=== PATIENT | female | born 1940 | race Caucasian/White ===

== ENCOUNTER → 2017-05-09 | Outpatient (CLI) | payer MEDICARE ==
[~2017-05-09] MED LIST: ASPI81TA81 PO; ATEN50TA PO; CHOL10008 PO; CIPR500T2 PO; FLEC1TAB9 PO; LEVO50TA4 PO; MULT-365 PO; VALS1TAB70 PO
[2017-05-09 14:24] LABS: AUTOMATED NEUTROPHIL # 5.7 TH/MM3 (1.8-7.7); BASOPHIL % 0.4 % (0.0-2.0); EOSINOPHIL # 0.1 TH/MM3 (0-0.4); EOSINOPHIL % 1.3 % (0.0-4.0); HEMATOCRIT 44.9 % (35.0-46.0); LYMPH % 30.6 % (9.0-44.0); MEAN CELL VOLUME 85.3 FL (80.0-100.0); MEAN CORPUSCULAR HEMOGLOBIN 28.6 PG (27.0-34.0); MEAN CORPUSCULAR HGB CONC 33.5 % (32.0-36.0); MEAN PLATELET VOLUME 7.7 FL (7.0-11.0); MONO % 8.4 % (0.0-8.0); MONOCYTE # 0.8 TH/MM3 (0-0.9); NEUT % 59.3 % (16.0-70.0); PLATELET COUNT 332 TH/MM3 (150-450); RED BLOOD COUNT 5.26 MIL/MM3 (4.00-5.30); RED CELL DISTRIBUTION WIDTH 13.5 % (11.6-17.2); WHITE BLOOD COUNT 9.7 TH/MM3 (4.0-11.0)
--- NOTE | 2017-05-09 14:35 | RADRPT ---
EXAM DATE/TIME: 05/09/2017 13:49 [facility] COMPARISON: No previous studies available for comparison. INDICATIONS : Evaluate for pneumonia, pneumothorax and communicable diseases. Pre-op lower back surgery MEDICAL HISTORY : Hypertension. A-Fib SURGICAL HISTORY : None. ENCOUNTER: Initial ACUITY: 1 day PAIN SCORE: 0/10 LOCATION: chest FINDINGS: PA and lateral views of the chest demonstrate the lungs to be symmetrically aerated without evidence of mass, infiltrate or effusion. The cardiomediastinal contours are unremarkable. Osseous structure s are intact. CONCLUSION: Normal examination for a patient of this age. Sumit Schrader MD on May 09, 2017 at 14:32 Board Certified Radiologist. This report was verified electronically.
[2017-05-09 14:36] LABS: BACTERIA, URINE MANY /hpf; BILIRUBIN, URINE NEG (NEG); BLOOD, URINE NEG (NEG); GLUCOSE,URINE NEG (NEG); KETONE, URINE NEG (NEG); MUCUS URINE FEW /lpf (OCC); NITRITE,URINE NEG (NEG); SQUAMOUS EPITHELIAL CELL URINE 2 /hpf (0-5); TRANSITIONAL EPI CELLS, URINE 1 /hpf; URINE COLOR YELLOW (YELLW/STRAW); URINE LEUKOCYTE ESTERASE LARGE (NEG); WHITE BLOOD CELL CLUMPS OCC
[2017-05-09 14:36] LABS: ALBUMIN 4.2 GM/DL (3.4-5.0); AST (GOT) 19 U/L (15-37); BICARBONATE 29.4 MEQ/L (21.0-32.0); BLOOD UREA NITROGEN 18 MG/DL (7-18); CALCIUM 9.9 MG/DL (8.5-10.1); CHLORIDE 104 MEQ/L (98-107); GLOMERULAR FILTRATION RATE 69 ML/MIN (>89); GLUCOSE,FASTING 87 MG/DL (74-99); SODIUM (NA) 141 MEQ/L (136-145)
[2017-05-09 14:39] LABS: ALKALINE PHOSPHATASE 87 U/L (45-117); ALT (GPT) 26 U/L (10-53); TOTAL BILIRUBIN ADULT 0.9 MG/DL (0.2-1.0); TOTAL PROTEIN 7.6 GM/DL (6.4-8.2)
[2017-05-09 14:41] LABS: PROTHROMBIN TIME - PATIENT 10.3 SEC (9.8-11.6)
== END ==
LOC: CPRE 12:29
PROVIDERS: ATTEND Neurological Surgery
DX: Z01.812 Encounter for preprocedural laboratory examination (principal); Z01.811 Encounter for preprocedural respiratory examination; M51.36 Other intervertebral disc degeneration, lumbar region; M48.062 Spinal stenosis, lumbar region with neurogenic claudication; M43.16 Spondylolisthesis, lumbar region; N39.0 Urinary tract infection, site not specified; B96.1 Klebsiella pneumoniae [K. pneumoniae] as the cause of diseases classified elsewhere; Z79.01 Long term (current) use of anticoagulants; I10 Essential (primary) hypertension; M85.9 Disorder of bone density and structure, unspecified; R73.9 Hyperglycemia, unspecified; E03.9 Hypothyroidism, unspecified
CPT/HCPCS: 36415; 71020; 80053; 81001; 85025; 85610; 85730; 87077; 87086; 87186

== ENCOUNTER → 2017-05-09 | Outpatient (CLI) | payer MEDICARE ==
[2017-05-09 14:40] LABS: CHOLESTEROL/ HDL RATIO 2.57 RATIO
== END ==
LOC: CLAB 12:36
PROVIDERS: ATTEND Family Medicine
DX: I10 Essential (primary) hypertension (principal); M85.9 Disorder of bone density and structure, unspecified; R73.9 Hyperglycemia, unspecified; E03.9 Hypothyroidism, unspecified
CPT/HCPCS: 80061; 82306

== ENCOUNTER 2017-05-20 08:30 | Inpatient (IN) | payer MEDICARE ==
[~2017-05-20] VITALS: Ht 172.7 cm; Wt 102.1 kg
--- NOTE | 2017-05-24 14:51 | MH ---
cc: JERICA ASENCIO M.D., ROHIT K. M.D. SICKINGER, BARTON G. DO DATE OF ADMISSION 05/27/2017 ADMITTING DIAGNOSIS 1. Lumbar degenerative disc disease. 2. Lumbar spinal stenosis. HISTORY OF PRESENT ILLNESS This is a 77-year-old female who presented to us for an evaluation of low back pain with difficulty walking secondary to numbness and paresthesias in the lower extremities. She states she has had pain in her low back for the last 30 years progressively getting worse but the numbness in the legs for the last year and a half or two. She states the numbness is all over her legs in no particular distribution. She states the numbness in her lower extremities and the low back pain resolve with sitting or lying down. She states that she has limited her ability to walk and has been using a walker for the last couple of months. She has been to pain management and had numerous injections which she states have been short-lived. She denies any bowel or bladder incontinence. She has been to physical therapy for numerous years and has seen Dr. Wade for 12-13 years. She states that she is only able to walk about 15-20 feet before she has to sit down. PAST MEDICAL HISTORY 1. Hypertension. 2. History of atrial fibrillation. 3. Gastroesophageal reflux disease. 4. Left hip replacement 2013. 5. Cataract surgery in May and June 2008. MEDICATIONS Current medications: 1. Flecainide 150 mg b.i.d. 2. Atenolol 50 mg daily. 3. Thyroxin 0.025 mg daily. 4. Valsartan 320 mg daily. 5. Multivitamin daily. 6. Aspirin 81 mg daily. ALLERGIES SHE STATES ENALAPRIL CAUSED A COUGH. FAMILY HISTORY Her father is at [id number] and had diabetes. Her mother is at [id number]-[id number] and had breast cancer and heart disease. She has a brother who is alive at 81-[id number] in good health. Another brother is alive at 75-year-old in good health. A sister is alive at 40-[id number]-iop in good health and a sister who is alive at 30-kyvgl-uar and has breast cancer. SOCIAL HISTORY She is retired. She is . She has three children. She lives alone. She does not smoke. She quit smoking in 1974. REVIEW OF SYSTEMS CONSTITUTIONAL: She denies any fever or chills. EARS, NOSE, AND THROAT: No pharyngitis, exudates or bloody drainage from her nose. CARDIOVASCULAR: Denies any chest pain or palpitations. RESPIRATORY: No cough or shortness of breath. GENITOURINARY: No dysuria or hematuria. MUSCULOSKELETAL: Positive for low back pain. SKIN: No rashes or pruritus. NEUROLOGIC: No difficulty with speech or memory. GASTROINTESTINAL: No nausea, vomiting, abdominal pain. PSYCHIATRIC: No anxiety or depression symptoms. ENDOCRINE: No polyuria or polydipsia. HEMATOLOGIC: Positive for bruising tendencies but no bleeding tendencies. PHYSICAL EXAMINATION HEAD: Normocephalic, atraumatic. NECK: Supple. No carotid bruits heard on auscultation. LUNGS: Clear to auscultation bilaterally. HEART: Regular rate and rhythm. Normal S1, S2. ABDOMEN: Soft, nontender. Positive bowel sounds. SKIN: No cyanosis or erythema. MUSCULOSKELETAL: She has 5/5 strength in the lower extremities. She ambulates with a rolling walker with a seat and brakes. NEUROLOGIC: She is awake, alert, oriented. Cranial nerves II-XII are grossly intact. Her speech is fluent. Comprehension is good. Sensation is intact in the lower extremities. Patellar reflexes are 2+. Achilles reflexes are diminished bilaterally. DATA REVIEW Reviewed an MRI of the lumbar spine from March 13, 2017 which revealed severe L4-L5 spinal stenosis from a combination of facet ligamentum flavum hypertrophy. There is also advanced L4-L5 disc degeneration with disc height collapse along with a grade I spondylolisthesis. There is L5-S1 disc degeneration also noted. IMPRESSION A 77-year-old female with a chronic history of low back pain which is severe and neurogenic claudication symptoms which have progressively gotten worse in the last 1-2 years. Even with the use of a walker she cannot walk more than 20-30 feet. She has undergone multiple bouts of physical therapy as well as interventional pain management without any lasting relief. She has severe L4-L5 spinal stenosis with facet arthropathy along with degenerative disc disease and a grade I spondylolisthesis. PLAN We have discussed treatment options with the patient which include continued conservative treatment measures including physical therapy and pain management versus surgical intervention. We have discussed L4-L5 interbody fusion with pedicle screw fixation with the patient in great detail. The procedure was explained using spine models in the office and all of her questions were answered to her satisfaction. We have discussed the procedure as well as the risk, benefit, alternative and recovery time in great detail with the patient. We have discussed the risks involved with surgery include but are not limited to bleeding, infection, muscle weakness, voice hoarseness, difficulty swallowing, heart attack, stroke, blood clots, non-fusion, scar tissue formation, among others. The patient understands the procedure and she wants to proceed. We have obtained cardiac clearance and medical clearance and she was therefore scheduled accordingly. Dictated by: Erick Cruz PA-C MD LATASHA Zhang/KLARISSA /2:00 PM /2:22 PM
[2017-05-27 02:00] VITALS: BP 120/57; PULSE 69; RESP 16; TEMP 97.7; O2SAT 98
[2017-05-27] MEDS ORDERED: POVIDONE IODINE 5% (ANTISEPSIS KIT) 4 APPLICATIONS EACH NARE PRN (06:45)
[2017-05-27] MEDS ORDERED: LACTATED RINGER'S 1000 ML IV PRN (06:45)
[2017-05-27] MEDS ORDERED: SODIUM CHLORID 0.9% 500 ML IV PRN (06:45)
[2017-05-27] MEDS ORDERED: SODIUM CHLOR 0.9% 1000 ML INJ 1,000 ML IV SCH (06:45)
[2017-05-27] MEDS ORDERED: CHLORHEXIDINE GLUCONATE 2 % 1 PACK (2 CLOTHS) TOPICAL PRN (06:45)
[2017-05-27] MEDS ORDERED: METOPROLOL TARTRATE 25 MG TAB PO PRN (06:45)
[2017-05-27] MEDS ORDERED: VANCOMYCIN HCL 1000 MG VIAL ONE ×2 (07:19→07:20)
[2017-05-27] MEDS ORDERED: BUPIVACAINE/EPINEPHRINE 0.5% 50 ML VIAL ONE (07:19)
[2017-05-27] MEDS ORDERED: THROMBIN (TOPICAL) 5,000 UNIT VIAL ONE (07:19)
[2017-05-27] MEDS ORDERED: GELFOAM SIZE 100 ONE (07:20)
[2017-05-27] MEDS ORDERED: ACETAMINOPHEN 1000 MG/100 ML 100 ML IV ONE (07:34)
[2017-05-27] MEDS ORDERED: ARTIFICIAL TEARS OPTH OINT 3.5 APPLIC/3.5 GM TUBO ONE (08:12)
[2017-05-27] MEDS: VANCOMYCIN 1000 MG/NS 250 ML ON-CALL IV SCH ×4 (08:48→10:38)
[2017-05-27] MEDS ORDERED: ROCURONIUM INJ 50 MG/5 ML SYRINGE IV PUSH ONE (12:00)
[2017-05-27] MEDS ORDERED: NEOSTIGMINE 5 MG/5 ML SYRINGE IV PUSH ONE (12:00)
[2017-05-27] MEDS ORDERED: LACTATED RINGER'S 1000 ML INJ 1,000 ML IV ONE (12:00)
[2017-05-27] MEDS ORDERED: PROPOFOL 200 MG/20 ML AMP IV ONE (12:00)
[2017-05-27] MEDS ORDERED: GLYCOPYRROLATE 1 MG/5 ML SYRINGE IV PUSH ONE (12:00)
[2017-05-27] MEDS ORDERED: ePHEDrine/NS 25 MG/5 ML SYRINGE IV ONE (12:00)
[2017-05-27] MEDS ORDERED: PHENYLEPH/NS 1000 MCG/10 ML SYR IV ONE (12:00)
[2017-05-27] MEDS ORDERED: LIDOCAINE HCL 1% PF 5 ML SYRINGE OTHER ONE (12:00)
[2017-05-27] MEDS ORDERED: PHENYLEPHRINE HCL 10 MG/ML VIAL IV ONE (12:00)
[2017-05-27] MEDS ORDERED: DEXAMETHASONE SOD PHOS 4 MG/ML VIAL IV ONE (12:00)
[2017-05-27] MEDS ORDERED: ONDANSETRON HCL 4 MG/2 ML VIAL IV ONE (12:00)
[2017-05-27] MEDS ORDERED: NS + KCL 20 MEQ INJ 1,000 ML IV SCH (12:12)
[2017-05-27] MEDS ORDERED: DO NOT ADM ANY ANTICOAGULANT DRUGS PRN (12:14)
[2017-05-27] MEDS ORDERED: POTASSIUM CHLOR 20 MEQ PREMIX 100 ML IV PRN (12:15)
[2017-05-27] MEDS ORDERED: cloNIDine HCL 0.1 MG TAB PO PRN (12:15)
[2017-05-27] MEDS ORDERED: ONDANSETRON HCL 4 MG/2 ML VIAL IV PUSH PRN (12:15)
[2017-05-27] MEDS ORDERED: BISACODYL 10 MG SUPP RECTAL PRN (12:15)
[2017-05-27] MEDS ORDERED: CYCLOBENZAPRINE HCL 10 MG TAB PO PRN (12:15)
[2017-05-27] MEDS ORDERED: RESP: ALBUTEROL 2.5 MG/3 ML NEB (PRN) NEB (12:15)
[2017-05-27] MEDS ORDERED: ACETAMINOPHEN 325 MG TAB PO PRN (12:15)
[2017-05-27] MEDS ORDERED: PROMETHAZINE INJ 25 MG/ML VIAL IM PRN (12:15)
[2017-05-27] MEDS ORDERED: MAGNESIUM SULFATE INJ 2 GM in SODIUM CHLORIDE 0.9% INJ 100 ML IV PRN (12:15)
[2017-05-27] MEDS ORDERED: SENNOSIDES 8.6 MG TAB PO PRN (12:15)
[2017-05-27] MEDS ORDERED: ACETAMINOPHEN/HYDROcodone 325 MG/10 MG TAB PO PRN (12:15)
[2017-05-27] MEDS ORDERED: MORPHINE SULFATE 4 MG/ML INJ IV PUSH PRN (12:15)
[2017-05-27] MEDS ORDERED: MAGNESIUM HYDROXIDE SUSP 30 ML CUP PO PRN (12:15)
[2017-05-27] MEDS ORDERED: MENTHOL LOZENGE BUCCAL PRN (12:15)
[2017-05-27] MEDS ORDERED: LACTULOSE SYRUP 20 GM/30 ML CUP PO PRN (12:15)
[2017-05-27] MEDS ORDERED: ALUMINUM/MAGNESIUM/SIMETH 30 ML CUP PO PRN (12:15)
[2017-05-27] MEDS ORDERED: CALCIUM GLUCONATE INJ 1 GM in SODIUM CHLORIDE 0.9% INJ 100 ML IV PRN (12:15)
[2017-05-27] MEDS ORDERED: SODIUM CHLORIDE 0.9% FLUSH 10 ML FLUSH IV FLUSH PRN (12:15)
--- NOTE | 2017-05-27 12:18 | PD.OP ---
MD Tima Marti MD Operative Report Date of Surgery: May 27, 2017 Preoperative Diagnosis: Lumbar L4-5 spinal stenosis with associated degenerative disc disease, facet hypertrophy, and grade 1 spondylolisthesis; low back pain with neurogenic claudication Postoperative Diagnosis: Same Anesthesia: Gen. endotracheal by Naldo wallis Surgeon: Kenneth Valentine M.D. Attendance Clerk(s): Hannah Navas Operation and Findings: Following initiation of general endotracheal anesthesia, the patient had a Rose catheter placed along with sequential compression devices. A gram of vancomycin was administered intravenously and she was turned in a prone position on a Brent frame, on a Zain table, and all pressure points adequately padded. The lumbosacral region was then prepped with Chloraprep and sterilely draped with Ioban along the usual sterile draping. A left paraspinal skin incision was then made extending from the L4-L5 level after infiltrating the skin with 0.5% Marcaine with epinephrine solution extending down through the fascia. The muscle fibers were split using avascular fatty plane and detached from the underlying facets, transverse process and lateral portion of lamina on the right side and a self-retaining retractor used for exposure. Intraoperative fluoroscopy was also used for level of confirmation along with microscope magnification for further dissection. There was significant facet and ligamentum flavum hypertrophy noted at the L4-5 levels. Left L4-5 facet was resected with a drill bit along with the lamina and there was severe foraminal and lateral recess stenosis from hypertrophied ligamentum flavum and facet which were decompressed bilaterally through the unilateral approach. There was disc height collapse along with disc protrusion also leading to the foraminal stenosis. Epidural hemostasis was achieved with bipolar cautery and Gelfoam with thrombin. Subsequently entered into the disc space at the L4-5 level with a #15 blade and michelle were used for discectomy. I then placed PEEK cage packed with local autograft bone and more local autograft bone was packed adjacent to the cage in interspace for added interbody fusion. With placement of the cage, I was able to distract the interspace and opened up the foramen further bilaterally. Subsequently in order to facilitate the fusion and provide stabilization, pedicle screw fixation was undertaken using Luling spine screws on entry point at the left L4-5 levels at the junction of the transverse process and facet. Subsequently using AP and lateral fluoroscopy tap and screw placement. The screws were then connected with a julianne and locked in place with caps. The construct appeared very secure at this point. The area was then copiously irrigated with Vancomycin solution and powder. The retractors were removed and the bipolar cautery used for hemostasis. The muscle fascia was then approximated using 2-0 Vicryl interrupted stitches and then 3-0 Vicryl subcuticular stitches also placed in interrupted fashion. The final skin closure was completed with Mastisol and Steri-Strips. A sterile dressing was then applied. The patient then turned in supine position, extubated and taken to recovery room. There were no intraoperative complications. All sponge and needle counts were correct at the end of procedure. Estimated blood loss about 100 ml. Kenneth Valentine MD May 27, 2017 12:18
--- NOTE | 2017-05-27 12:32 | RADRPT ---
EXAM DATE/TIME: 05/27/2017 08:56 [facility] COMPARISON: No previous studies available for comparison. INDICATIONS : L4-L5 posterior lumbar fusion. Level localization. MEDICAL HISTORY : None. SURGICAL HISTORY : None. ENCOUNTER: Initial ACUITY: 1 day PAIN SCORE: Non-responsive. LOCATION: Lumbar spine. FINDINGS: A single cross table lateral view of the lower lumbar spine was obtained intraoperatively using a mat aamir camera. This demonstrates posterior spinal retractors in place with metallic marker posterior to the L4 vertebral body. There is a mild grade 1 anterospondylolisthesis of L4 and L5 of several millim eters. The study is labeled assuming 5 nonrib-bearing lumbar type vertebra. CONCLUSION: Limited localization exam as described. Yoel Sharpe MD on May 27, 2017 at 12:30 Board Certified Radiologist. This report was verified electronically.
--- NOTE | 2017-05-27 12:32 | RADRPT ---
EXAM DATE/TIME: 05/27/2017 08:56 [facility] COMPARISON: No previous studies available for comparison. INDICATIONS : Post-op L4-L5 posterior lumbar fusion. MEDICAL HISTORY : None. SURGICAL HISTORY : None. ENCOUNTER: Initial ACUITY: 1 day PAIN SCORE: Non-responsive. LOCATION: Lumbar spine. FINDINGS: AP and lateral cone-down views of the lower lumbar spine were obtained and demonstrate that the patie nt is status post fusion at the L4-5 level with left-sided pedicle screws and posterior fixation julianne. There is bone grafting material and markers in the L4-5 interspace. Is a mild grade 1 anterior spond ylolisthesis of L4 on L5. The study is labeled assuming 5 nonrib-bearing lumbar type vertebra. CONCLUSION: 1. Status post fusion at L4-5. 2. Mild grade 1 anterior spondylolisthesis of L4 and L5. Yoel Sharpe MD on May 27, 2017 at 12:29 Board Certified Radiologist. This report was verified electronically.
[2017-05-27 13:08] LABS: AUTOMATED NEUTROPHIL # 5.7 TH/MM3 (1.8-7.7); BASOPHIL % 0.5 % (0.0-2.0); EOSINOPHIL % 0.2 % (0.0-4.0); HEMATOCRIT 39.3 % (35.0-46.0); HEMOGLOBIN 13.6 GM/DL (11.6-15.3); LYMPH % 19.6 % (9.0-44.0); LYMPHOCYTE # 1.5 TH/MM3 (1.0-4.8); MEAN CELL VOLUME 85.2 FL (80.0-100.0); MEAN CORPUSCULAR HEMOGLOBIN 29.4 PG (27.0-34.0); MEAN CORPUSCULAR HGB CONC 34.5 % (32.0-36.0); MEAN PLATELET VOLUME 7.4 FL (7.0-11.0); MONO % 2.8 % (0.0-8.0); MONOCYTE # 0.2 TH/MM3 (0-0.9); NEUT % 76.9 % (16.0-70.0); PLATELET COUNT 275 TH/MM3 (150-450); RED BLOOD COUNT 4.61 MIL/MM3 (4.00-5.30); RED CELL DISTRIBUTION WIDTH 13.8 % (11.6-17.2); WHITE BLOOD COUNT 7.5 TH/MM3 (4.0-11.0)
[2017-05-27 13:31] LABS: BICARBONATE 24.8 MEQ/L (21.0-32.0); CALCIUM 8.7 MG/DL (8.5-10.1); CREATININE 0.9 MG/DL (0.50-1.00); MAGNESIUM 1.9 MG/DL (1.5-2.5)
--- NOTE | 2017-05-27 13:55 | PD.CONS ---
HPI Service [facility] Consult Requested By Neurosurgery Reason for Consult Medical management Primary Care Physician Tima Mora M.D. Diagnoses: History of Present Illness 77 year-old female with a history of atrial fibrillation, hypertension , lumbar stenosis with neurogenic claudication and bilateral sciatica with despite medical management as well as physical therapy has been complaining of severe back pain with now worsening numbness and weakness to bilateral lower extremities extending down to the toes, was taken to the operating room today and underwent PLIF. [facility] was consulted for medical management. Patient was seen was operatively in PACU and denies any shortness of breath or chest pain. Vitals stable. Review of Systems Except as stated in HPI: all other systems reviewed are Neg Past Family Social History Allergies: Coded Allergies: Sulfa (Sulfonamide Antibiotics) (Unverified Allergy, Severe, SEVERE HIVES , 05/27/17) enalaprilat (Unverified Allergy, Severe, Cough, 05/27/17) procaine (Verified Allergy, Severe, SYNCOPE, 05/27/17) GIVEN IN DDS OFFICE Past Medical History Low back pain with bilateral sciatica Lumbar stenosis with neurogenic claudication Atrial fibrillation Hypertension Hypothyroidism GERD Past Surgical History PLIF Left hip replacement cataract surgery Reported Medications 1. Flecainide 150 mg b.i.d. 2. Atenolol 50 mg daily. 3. Thyroxin 0.025 mg daily. 4. Valsartan 320 mg daily. 5. Multivitamin daily. 6. Aspirin 81 mg daily. Family History Noncontributory Social History Patient denies tobacco, alcohol or easy drug intake Physical Exam Vital Signs Vital Signs Date Time Temp Pulse Resp B/P (MAP) Pulse Ox O2 Delivery O2 Flow Rate FiO2 05/27/17 07:02 99.3 60 16 151/86 (107) 96 Physical Exam GENERAL: This is a well-nourished, well-developed patient, in no apparent distress. SKIN: No rashes, ecchymoses or lesions. Cool and dry. HEAD: Atraumatic. Normocephalic. No temporal or scalp tenderness. EYES: Pupils equal round and reactive. Extraocular motions intact. No scleral icterus. No injection or drainage. ENT: Nose without bleeding, purulent drainage or septal hematoma. Throat without erythema, tonsillar hypertrophy or exudate. Uvula midline. Airway patent. NECK: Trachea midline. No JVD or lymphadenopathy. Supple, nontender, no meningeal signs. CARDIOVASCULAR: Regular rate and rhythm without murmurs, gallops, or rubs. RESPIRATORY: Clear to auscultation. Breath sounds equal bilaterally. No wheezes , rales, or rhonchi. GASTROINTESTINAL: Abdomen soft, non-tender, nondistended. No hepato-splenomegaly , or palpable masses. No guarding. MUSCULOSKELETAL: Extremities without clubbing, cyanosis, or edema. No joint tenderness, effusion, or edema noted. No calf tenderness. Negative Homans sign bilaterally. NEUROLOGICAL: Awake and alert. Cranial nerves II through XII intact. Motor and sensory grossly within normal limits. Five out of 5 muscle strength in all muscle groups. Normal speech. Laboratory Laboratory Tests Test 05/27/17 12:50 White Blood Count 7.5 Red Blood Count 4.61 Hemoglobin 13.6 Hematocrit 39.3 Mean Corpuscular Volume 85.2 Mean Corpuscular Hemoglobin 29.4 Mean Corpuscular Hemoglobin Concent 34.5 Red Cell Distribution Width 13.8 Platelet Count 275 Mean Platelet Volume 7.4 Neutrophils (%) (Auto) 76.9 Lymphocytes (%) (Auto) 19.6 Monocytes (%) (Auto) 2.8 Eosinophils (%) (Auto) 0.2 Basophils (%) (Auto) 0.5 Neutrophils # (Auto) 5.7 Lymphocytes # (Auto) 1.5 Monocytes # (Auto) 0.2 Eosinophils # (Auto) 0.0 Basophils # (Auto) 0.0 CBC Comment AUTO DIFF Blood Urea Nitrogen 17 Creatinine 0.90 Random Glucose 138 Calcium Level 8.7 Magnesium Level 1.9 Sodium Level 141 Potassium Level 3.8 Chloride Level 108 Carbon Dioxide Level 24.8 Anion Gap 8 Estimat Glomerular Filtration Rate 60 Result Diagram: 05/27/17 1250 05/27/17 1250 Imaging Last Impressions Lumbar Spine X-Ray 05/27/17 0000 Signed Impressions: Service Date/Time: Saturday, May 27, 2017 08:56 - CONCLUSION: Limited localization exam as described. Yoel Sharpe MD Assessment and Plan Assessment and Plan 27 year-old female with Low back pain with bilateral sciatica Lumbar stenosis with neurogenic claudication Status post L4/L5 transforaminal interbody fixation Management per neurosurgery Continue with current postop care including parenteral pain medication PT consult to treat and eval History of atrial fibrillation Currently rate control, and continue with Tambocor 150mg BID, ted and baby aspirin Patient not on any oral anticoagulation Hypertension Continue atenolol, Diovan Hypothyroidism Continue with home Synthroid dose DVT prophylaxis: Bilateral SCDs Thank you for this consultation Code Status Full code Discussed Condition With Patient Erick Rosen MD May 27, 2017 13:55
[2017-05-27 14:05] LABS: BANDS 8 % (0-6); CORRECTED NUCLEATED RBC 1 /100 WBC (0-0); LYMPHOCYTES 12 % (9-44); METAMYELOCYTES 1 % (0-1); MONOCYTES 3 % (0-8); NEUTROPHIL # MANUAL DIFF 6.4 TH/MM3 (1.8-7.7); NUCLEATED RED BLOOD CELL 1 (0-0); POLYS (SEG NEUTROPHILS) 76 % (16-70)
--- NOTE | 2017-05-27 15:41 | EKG ---
Date Performed: 05/27/2017 Time Performed: 06:48:14 PTAGE: 77 years EKG: SUPRAVENTRICULAR RHYTHM INCOMPLETE RIGHT BUNDLE BRANCH BLOCK MODERATE ST DEPRESSION ABNORMA L ECG NO PREVIOUS TRACING DOCTOR: Mukesh Matthew Interpretating Date/Time 05/27/2017 15:40:25
[2017-05-27] MEDS: ACETAMINOPHEN/HYDROcodone 325 MG/10 MG TAB PO PRN ×2 (18:35→22:28)
[2017-05-27 20:00] VITALS: BP 120/57; PULSE 69; RESP 16; TEMP 97.7; O2SAT 98
[2017-05-27] MEDS ORDERED: ZOLPIDEM TARTRATE 5 MG TAB PO PRN (21:00)
[2017-05-27] MEDS: FLECAINIDE ACETATE 100 MG TAB PO SCH (22:23)
[2017-05-27] MEDS: SODIUM CHLORIDE 0.9% FLUSH 10 ML FLUSH IV FLUSH SCH (22:23)
[2017-05-27] MEDS: DOCUSATE SODIUM 50 MG/SENNA 8.6 MG TAB PO SCH (22:24)
[2017-05-28] VITALS (8 sets, daily range): BP systolic 101–163; BP diastolic 52–60; PULSE 66–72; RESP 16–18; TEMP 97.4–99.7; O2SAT 95–96
[2017-05-28] MEDS: LEVOTHYROXINE SODIUM 50 MCG TAB PO SCH (06:33)
[2017-05-28] MEDS: ATENOLOL 50 MG TAB PO SCH (08:50)
[2017-05-28] MEDS: CHOLECALCIFEROL (VIT D3) 1000 UNIT TAB PO SCH (08:50)
[2017-05-28] MEDS: DOCUSATE SODIUM 50 MG/SENNA 8.6 MG TAB PO SCH ×2 (08:50→19:53)
[2017-05-28] MEDS: ASPIRIN EC 81 MG TABEC PO SCH (08:50)
[2017-05-28] MEDS: VALSARTAN 160 MG TAB PO SCH (08:50)
[2017-05-28] MEDS: ACETAMINOPHEN/HYDROcodone 325 MG/10 MG TAB PO PRN ×3 (08:57→21:36)
[2017-05-28] MEDS: SODIUM CHLORIDE 0.9% FLUSH 10 ML FLUSH IV FLUSH SCH ×2 (09:00→19:54)
[2017-05-28] MEDS: PANTOPRAZOLE SOD 40 MG DELAYED RELEASE TAB PO SCH (09:00)
[2017-05-28] MEDS: FLECAINIDE ACETATE 100 MG TAB PO SCH ×2 (09:00→19:53)
[2017-05-28] MEDS ORDERED: [UNRECOGNIZED DRUG - MIXTURE] PO SCH (09:00)
--- NOTE | 2017-05-28 09:45 | HHI.NSPN ---
(Erick Cruz) History Chief Complaint: Incisional back pain. (Erick Cruz) Interval History 05/28/17: Pt s/p L4/L5 TLIF with cage and pedicle screw fixation on 05/27/17. She is doing very well with pain control off the VASCULAR ULTRASOUND TECHNICIAN. No radiculopathy in LEs. She has not been oob yet, as brace is not yet available. Rose is out. (Erick Cruz) Review of Systems General: Negative for: fever, chills, insomnia Respiratory: Negative for: shortness of breath, cough, sputum Cardiovascular: Negative for: chest pain Gastrointestinal: Negative for: nausea, vomitting, diarrhea, constipation ( Erick Cruz) Exam Results Vital Signs Date Time Temp Pulse Resp B/P (MAP) Pulse Ox O2 Delivery O2 Flow Rate FiO2 05/28/17 07:51 96 21 05/28/17 04:00 98.3 66 16 163/55 (91) 05/27/17 17:45 Nasal Cannula 2 Intake and Output 05/28/17 05/28/17 05/29/17 08:00 16:00 00:00 Intake Total 1300 ml Output Total 900 ml Balance 400 ml (Erick Cruz) Physical Examination General: Pt resting in bed in NAD. Resp: CTA bilaterally Heart: NSR no murmurs Abd: Soft positive bs Skin: No cyanosis or erythema Muscle: Moves LEs with good strength. Neuro: Pt awake and alert. Follows commands well. Speech clear and appropriate. (Erick Cruz) Lab, Micro, Other Results Last Impressions Lumbar Spine X-Ray 05/27/17 0000 Signed Impressions: Service Date/Time: Saturday, May 27, 2017 08:56 - CONCLUSION: Limited localization exam as described. Yoel Sharpe MD Laboratory Tests Test 05/27/17 12:50 White Blood Count 7.5 TH/MM3 Red Blood Count 4.61 MIL/MM3 Hemoglobin 13.6 GM/DL Hematocrit 39.3 % Mean Corpuscular Volume 85.2 FL Mean Corpuscular Hemoglobin 29.4 PG Mean Corpuscular Hemoglobin Concent 34.5 % Red Cell Distribution Width 13.8 % Platelet Count 275 TH/MM3 Mean Platelet Volume 7.4 FL Neutrophils (%) (Auto) 76.9 % Lymphocytes (%) (Auto) 19.6 % Monocytes (%) (Auto) 2.8 % Eosinophils (%) (Auto) 0.2 % Basophils (%) (Auto) 0.5 % Neutrophils # (Auto) 5.7 TH/MM3 Lymphocytes # (Auto) 1.5 TH/MM3 Monocytes # (Auto) 0.2 TH/MM3 Eosinophils # (Auto) 0.0 TH/MM3 Basophils # (Auto) 0.0 TH/MM3 CBC Comment AUTO DIFF Differential Total Cells Counted 100 Neutrophils % (Manual) 76 % Band Neutrophils % 8 % Lymphocytes % 12 % Monocytes % 3 % Neutrophils # (Manual) 6.4 TH/MM3 Metamyelocytes 1 % Nucleated Red Blood Cells 1 /100 WBC Differential Comment FINAL DIFF MANUAL Platelet Estimate NORMAL Platelet Morphology Comment NORMAL Red Cell Morphology Comment NORMAL Blood Urea Nitrogen 17 MG/DL Creatinine 0.90 MG/DL Random Glucose 138 MG/DL Calcium Level 8.7 MG/DL Magnesium Level 1.9 MG/DL Sodium Level 141 MEQ/L Potassium Level 3.8 MEQ/L Chloride Level 108 MEQ/L Carbon Dioxide Level 24.8 MEQ/L Anion Gap 8 MEQ/L Estimat Glomerular Filtration Rate 60 ML/MIN (Erick Cruz) Medical Decision Making Impression and Plan A: 77 y/o FM s/p L4/L5 TLIF with cage and pedicle screw fixation P: Continue to monitor Rehab efforts. OOB when brace available. (Erick Cruz) Attending Statement The exam, history, and the medical decision-making described in the above note were completed with the assistance of the mid-level provider. I reviewed and agree with the findings presented. I attest that I had a [id number] encounter with the patient on the same day, and personally performed and documented my assessment and findings in the medical record. (Kenneth Valentine MD) Erick Cruz May 28, 2017 09:45 Kenneth Valentine MD May 28, 2017 17:25
--- NOTE | 2017-05-28 15:11 | HHI.PR ---
Subjective Remarks Pain is under control. No acute distress. Functional status is not yet to baseline and patient feels she may do better at a fdc facility at this point. Objective Vital Signs Date Time Temp Pulse Resp B/P (MAP) Pulse Ox O2 Delivery O2 Flow Rate FiO2 05/28/17 12:00 99.7 68 18 115/60 (78) 95 05/28/17 08:00 98.0 70 18 109/56 (73) 96 05/28/17 07:51 96 21 05/28/17 04:00 98.3 66 16 163/55 (91) 96 05/28/17 02:00 97.5 67 16 107/55 (72) 95 05/27/17 20:00 97.7 69 16 120/57 (78) 98 05/27/17 17:45 65 14 118/62 (80) 97 Nasal Cannula 2 05/27/17 17:00 68 14 102/58 (73) 96 Nasal Cannula 2 05/27/17 16:00 65 14 109/56 (73) 97 Nasal Cannula 2 I/O 05/27/17 05/27/17 05/27/17 05/28/17 05/28/17 05/28/17 07:00 15:00 23:00 07:00 15:00 23:00 Intake Total 900 ml 680 ml 1300 ml Output Total 700 ml 900 ml Balance 200 ml 680 ml 400 ml Intake Oral 580 ml 200 ml IV Total 900 ml 100 ml 1100 ml Output Urine Total 600 ml 900 ml Estimated Blood Loss 100 ml Result Diagram: 05/27/17 1250 05/27/17 1250 Objective Remarks GENERAL: NAD, A&Ox3 HEAD: Normocephalic. NECK: Supple, trachea midline. No lymphadenopathy. EYES: No scleral icterus. No injection or drainage. CARDIOVASCULAR: Regular rate and rhythm without murmurs, gallops, or rubs. RESPIRATORY: Breath sounds equal bilaterally. No accessory muscle use. GASTROINTESTINAL: Abdomen soft, non-tender, nondistended. MUSCULOSKELETAL: No cyanosis, or edema. Back braces on. SKIN: Warm and dry. NEURO: No focal neurological deficitis. A/P Problem List: (1) Lumbar stenosis ICD Code: M48.061 - Spinal stenosis, lumbar region without neurogenic claudication Assessment and Plan 77 year-old female with lower back disease admitted for and now status post L4/ L5 transforaminal interbody fixation Low back pain with bilateral sciatica Lumbar stenosis with neurogenic claudication Status post L4/L5 transforaminal interbody fixation Neurosurgery following Continue postop care Continue PT Thank for fdc facility at discharge Atrial fibrillation continue with Tambocor 150mg BID, Continue beta ted and baby aspirin Hypertension Continue atenolol, Diovan Hypothyroidism Continue with home Synthroid dose DVT prophylaxis SCDs Santiago Bailey MD May 28, 2017 15:11
[2017-05-29] VITALS (8 sets, daily range): BP systolic 98–128; BP diastolic 51–61; PULSE 76–80; RESP 17–18; TEMP 98.9–100.6; O2SAT 93–96
[2017-05-29] MEDS: ACETAMINOPHEN/HYDROcodone 325 MG/10 MG TAB PO PRN ×3 (02:55→20:13)
[2017-05-29] MEDS: LEVOTHYROXINE SODIUM 50 MCG TAB PO SCH (05:03)
[2017-05-29 07:30] LABS: AUTOMATED NEUTROPHIL # 6.5 TH/MM3 (1.8-7.7); BASOPHIL % 0.4 % (0.0-2.0); EOSINOPHIL # 0.1 TH/MM3 (0-0.4); EOSINOPHIL % 0.8 % (0.0-4.0); HEMATOCRIT 32.8 % (35.0-46.0); HEMOGLOBIN 11.5 GM/DL (11.6-15.3); LYMPH % 19.9 % (9.0-44.0); LYMPHOCYTE # 1.9 TH/MM3 (1.0-4.8); MEAN CELL VOLUME 85.9 FL (80.0-100.0); MEAN CORPUSCULAR HGB CONC 34.9 % (32.0-36.0); MEAN PLATELET VOLUME 7.8 FL (7.0-11.0); MONO % 11.7 % (0.0-8.0); MONOCYTE # 1.1 TH/MM3 (0-0.9); NEUT % 67.2 % (16.0-70.0); PLATELET COUNT 222 TH/MM3 (150-450); RED BLOOD COUNT 3.82 MIL/MM3 (4.00-5.30); RED CELL DISTRIBUTION WIDTH 13.8 % (11.6-17.2); WHITE BLOOD COUNT 9.6 TH/MM3 (4.0-11.0)
[2017-05-29 07:49] LABS: ALBUMIN 2.8 GM/DL (3.4-5.0); AST (GOT) 72 U/L (15-37); BICARBONATE 28.5 MEQ/L (21.0-32.0); BLOOD UREA NITROGEN 19 MG/DL (7-18); CHLORIDE 107 MEQ/L (98-107); CREATININE 0.89 MG/DL (0.50-1.00); GLOMERULAR FILTRATION RATE 61 ML/MIN (>89); GLUCOSE,RANDOM 103 MG/DL (74-106); SODIUM (NA) 140 MEQ/L (136-145)
[2017-05-29 07:50] LABS: ALT (GPT) 30 U/L (10-53)
[2017-05-29 07:52] LABS: ALKALINE PHOSPHATASE 63 U/L (45-117); TOTAL BILIRUBIN ADULT 0.7 MG/DL (0.2-1.0); TOTAL PROTEIN 5.8 GM/DL (6.4-8.2)
[2017-05-29] MEDS: ATENOLOL 50 MG TAB PO SCH (08:18)
[2017-05-29] MEDS: PANTOPRAZOLE SOD 40 MG DELAYED RELEASE TAB PO SCH (08:18)
[2017-05-29] MEDS: CHOLECALCIFEROL (VIT D3) 1000 UNIT TAB PO SCH (08:18)
[2017-05-29] MEDS: VALSARTAN 160 MG TAB PO SCH (08:19)
[2017-05-29] MEDS: ASPIRIN EC 81 MG TABEC PO SCH (08:19)
[2017-05-29] MEDS: DOCUSATE SODIUM 50 MG/SENNA 8.6 MG TAB PO SCH ×2 (08:19→20:13)
[2017-05-29] MEDS: FLECAINIDE ACETATE 100 MG TAB PO SCH ×2 (08:19→20:13)
[2017-05-29] MEDS: SODIUM CHLORIDE 0.9% FLUSH 10 ML FLUSH IV FLUSH SCH ×2 (08:24→20:13)
--- NOTE | 2017-05-29 10:04 | HHI.NSPN ---
(Erick Cruz) History Chief Complaint: Incisional back pain. (Erick Cruz) Interval History 05/28/17: Pt s/p L4/L5 TLIF with cage and pedicle screw fixation on 05/27/17. She is doing very well with pain control off the [employer]. No radiculopathy in LEs. She has not been oob yet, as brace is not yet available. [place] is out. 05/29/17: Pt awake and alert. She is more painful at incision today which isn' t unexpected. She denies any radiculopathy or paresthesias in LEs. She ambulates short distance and will benefit from rehab placement tomorrow. (Erick Cruz) Review of Systems General: Negative for: fever, chills, insomnia Respiratory: Negative for: shortness of breath, cough, sputum Cardiovascular: Negative for: chest pain Gastrointestinal: Negative for: nausea, vomitting, diarrhea, constipation ( Erick Cruz) Exam Results Vital Signs Date Time Temp Pulse Resp B/P (MAP) Pulse Ox O2 Delivery O2 Flow Rate FiO2 05/29/17 08:00 98.9 77 17 122/58 (79) 94 05/28/17 17:59 21 05/27/17 17:45 Nasal Cannula 2 Intake and Output 05/29/17 05/29/17 05/30/17 08:00 16:00 00:00 Intake Total 480 ml Balance 480 ml (Erick Cruz) Physical Examination General: Pt resting in bed in NAD. Resp: CTA bilaterally Heart: NSR no murmurs Abd: Soft positive bs Skin: No cyanosis or erythema. RN changed bandage this am. Muscle: Moves LEs with good strength. Neuro: Pt awake and alert. Follows commands well. Speech clear and appropriate. (Erick Cruz) Lab, Micro, Other Results Last Impressions Lumbar Spine X-Ray 05/27/17 0000 Signed Impressions: Service Date/Time: Saturday, May 27, 2017 08:56 - CONCLUSION: Limited localization exam as described. Yoel Sharpe MD Laboratory Tests Test 05/29/17 06:48 White Blood Count 9.6 TH/MM3 Red Blood Count 3.82 MIL/MM3 Hemoglobin 11.5 GM/DL Hematocrit 32.8 % Mean Corpuscular Volume 85.9 FL Mean Corpuscular Hemoglobin 30.0 PG Mean Corpuscular Hemoglobin Concent 34.9 % Red Cell Distribution Width 13.8 % Platelet Count 222 TH/MM3 Mean Platelet Volume 7.8 FL Neutrophils (%) (Auto) 67.2 % Lymphocytes (%) (Auto) 19.9 % Monocytes (%) (Auto) 11.7 % Eosinophils (%) (Auto) 0.8 % Basophils (%) (Auto) 0.4 % Neutrophils # (Auto) 6.5 TH/MM3 Lymphocytes # (Auto) 1.9 TH/MM3 Monocytes # (Auto) 1.1 TH/MM3 Eosinophils # (Auto) 0.1 TH/MM3 Basophils # (Auto) 0.0 TH/MM3 CBC Comment DIFF FINAL Differential Comment Blood Urea Nitrogen 19 MG/DL Creatinine 0.89 MG/DL Random Glucose 103 MG/DL Total Protein 5.8 GM/DL Albumin 2.8 GM/DL Calcium Level 8.0 MG/DL Alkaline Phosphatase 63 U/L Aspartate Amino Transf (AST/SGOT) 72 U/L Alanine Aminotransferase (ALT/SGPT) 30 U/L Total Bilirubin 0.7 MG/DL Sodium Level 140 MEQ/L Potassium Level 4.0 MEQ/L Chloride Level 107 MEQ/L Carbon Dioxide Level 28.5 MEQ/L Anion Gap 5 MEQ/L Estimat Glomerular Filtration Rate 61 ML/MIN (Erick Cruz) Medical Decision Making Impression and Plan A: 77 y/o FM s/p L4/L5 TLIF with cage and pedicle screw fixation P: Continue to monitor Rehab efforts. OOB when brace available. Anticipate inpatient rehab placement tomorrow. (Erick Cruz) Attending Statement The exam, history, and the medical decision-making described in the above note were completed with the assistance of the mid-level provider. I reviewed and agree with the findings presented. I attest that I had a [id number] encounter with the patient on the same day, and personally performed and documented my assessment and findings in the medical record. (Kenneth Valentine MD) Erick Cruz May 29, 2017 10:04 Kenneth Valentine MD May 29, 2017 17:01
--- NOTE | 2017-05-29 11:43 | HHI.PR ---
Subjective Remarks Pain present today. Patient has most of her pain with attempted movements. She has not started yet today secondary to pain. In the bed she is comfortable. Fever with a MAXIMUM TEMPERATURE of 100.6 overnight area no signs of infection based on CBC. Etiology of fever may be postop related. Hemoglobin is 11.5 this morning. Patient should be medically stable by tomorrow for transfer to any rehabilitation. Objective Vital Signs Date Time Temp Pulse Resp B/P (MAP) Pulse Ox O2 Delivery O2 Flow Rate FiO2 05/29/17 10:42 94 05/29/17 08:00 98.9 77 17 122/58 (79) 94 05/29/17 03:00 100.0 76 18 98/51 (67) 95 05/29/17 00:05 100.6 77 17 120/61 (80) 93 05/28/17 19:20 98.0 72 17 110/56 (74) 95 05/28/17 17:59 95 21 05/28/17 16:00 97.4 66 18 101/52 (68) 96 05/28/17 12:00 99.7 68 18 115/60 (78) 95 I/O 05/28/17 05/28/17 05/28/17 05/29/17 05/29/17 05/29/17 07:00 15:00 23:00 07:00 15:00 23:00 Intake Total 1300 ml 480 ml 480 ml 480 ml Output Total 900 ml Balance 400 ml 480 ml 480 ml 480 ml Intake Oral 200 ml 480 ml 480 ml 480 ml IV Total 1100 ml Output Urine Total 900 ml # Voids 1 1 1 # Bowel Movements 0 0 Result Diagram: 05/29/1748 05/29/17 0648 Objective Remarks GENERAL: NAD, A&Ox3 HEAD: Normocephalic. NECK: Supple, trachea midline. No lymphadenopathy. EYES: No scleral icterus. No injection or drainage. CARDIOVASCULAR: Regular rate and rhythm without murmurs, gallops, or rubs. RESPIRATORY: Breath sounds equal bilaterally. No accessory muscle use. GASTROINTESTINAL: Abdomen soft, non-tender, nondistended. MUSCULOSKELETAL: No cyanosis, or edema. Back braces on. SKIN: Warm and dry. NEURO: No focal neurological deficitis. A/P Problem List: (1) Lumbar stenosis ICD Code: M48.061 - Spinal stenosis, lumbar region without neurogenic claudication Assessment and Plan 77 year-old female with lower back disease admitted for and now status post L4/ L5 transforaminal interbody fixation. Fever overnight without signs of infection. No concerns for fever unless pattern becomes recurrent. Labs reviewed. Minimal blood loss hemoglobinlevel. Repeat CBC in AM to monitor hemoglobin and white blood cell count and neutrophil percent. I expect patient should be stable for medical clearance for discharge to rehabilitation tomorrow. Low back pain with bilateral sciatica Lumbar stenosis with neurogenic claudication Status post L4/L5 transforaminal interbody fixation Neurosurgery following Continue postop care Continue PT Thank for shelter facility at discharge Atrial fibrillation continue with Tambocor 150mg BID, Continue beta ted and baby aspirin Hypertension Continue atenolol, Diovan Hypothyroidism Continue with home Synthroid dose DVT prophylaxis SCDs Santiago Bailey MD May 29, 2017 11:43
[2017-05-29] MEDS: ENOXAPARIN SODIUM 40 MG/0.4 ML SYRINGE SQ SCH (15:16)
[2017-05-30 01:10] VITALS: BP 118/56; PULSE 66; RESP 17; TEMP 98.1; O2SAT 94
[2017-05-30 04:20] VITALS: BP 138/66; PULSE 68; RESP 16; TEMP 98.4; O2SAT 93
[2017-05-30] MEDS: ACETAMINOPHEN/HYDROcodone 325 MG/10 MG TAB PO PRN ×2 (05:02→09:23)
[2017-05-30] MEDS: LEVOTHYROXINE SODIUM 50 MCG TAB PO SCH (05:03)
[2017-05-30 06:03] LABS: AUTOMATED NEUTROPHIL # 6.1 TH/MM3 (1.8-7.7); BASOPHIL % 0.3 % (0.0-2.0); EOSINOPHIL # 0.1 TH/MM3 (0-0.4); EOSINOPHIL % 1.3 % (0.0-4.0); HEMATOCRIT 34.8 % (35.0-46.0); HEMOGLOBIN 11.8 GM/DL (11.6-15.3); LYMPH % 24.6 % (9.0-44.0); LYMPHOCYTE # 2.4 TH/MM3 (1.0-4.8); MEAN CELL VOLUME 86.9 FL (80.0-100.0); MEAN CORPUSCULAR HEMOGLOBIN 29.5 PG (27.0-34.0); MEAN PLATELET VOLUME 8.1 FL (7.0-11.0); MONO % 10.4 % (0.0-8.0); NEUT % 63.4 % (16.0-70.0); PLATELET COUNT 230 TH/MM3 (150-450); RED CELL DISTRIBUTION WIDTH 13.5 % (11.6-17.2); WHITE BLOOD COUNT 9.7 TH/MM3 (4.0-11.0)
[2017-05-30 06:09] LABS: ALBUMIN 2.8 GM/DL (3.4-5.0); AST (GOT) 56 U/L (15-37); BICARBONATE 28.6 MEQ/L (21.0-32.0); BLOOD UREA NITROGEN 19 MG/DL (7-18); CALCIUM 8.5 MG/DL (8.5-10.1); CHLORIDE 103 MEQ/L (98-107); CREATININE 0.82 MG/DL (0.50-1.00); GLOMERULAR FILTRATION RATE 67 ML/MIN (>89); GLUCOSE,RANDOM 95 MG/DL (74-106); SODIUM (NA) 139 MEQ/L (136-145)
[2017-05-30 06:10] LABS: ALT (GPT) 25 U/L (10-53)
[2017-05-30 06:12] LABS: ALKALINE PHOSPHATASE 66 U/L (45-117); TOTAL BILIRUBIN ADULT 0.7 MG/DL (0.2-1.0)
[2017-05-30 08:00] VITALS: BP 135/63; PULSE 68; RESP 17; TEMP 97.1; O2SAT 94
[2017-05-30] MEDS: FLECAINIDE ACETATE 100 MG TAB PO SCH (08:15)
[2017-05-30] MEDS: VALSARTAN 160 MG TAB PO SCH (08:15)
[2017-05-30] MEDS: CHOLECALCIFEROL (VIT D3) 1000 UNIT TAB PO SCH (08:15)
[2017-05-30] MEDS: DOCUSATE SODIUM 50 MG/SENNA 8.6 MG TAB PO SCH (08:15)
[2017-05-30] MEDS: ASPIRIN EC 81 MG TABEC PO SCH (08:15)
[2017-05-30] MEDS: PANTOPRAZOLE SOD 40 MG DELAYED RELEASE TAB PO SCH (08:15)
[2017-05-30] MEDS: ATENOLOL 50 MG TAB PO SCH (08:15)
[2017-05-30] MEDS: SODIUM CHLORIDE 0.9% FLUSH 10 ML FLUSH IV FLUSH SCH (08:15)
[2017-05-30] MEDS ORDERED: BISA10R RECTAL (09:50)
[2017-05-30] MEDS ORDERED: PANT40TA3 PO (09:50)
[2017-05-30] MEDS ORDERED: CYCL10TA PO (09:50)
[2017-05-30] MEDS ORDERED: Lactulose Liq PO (09:50)
[2017-05-30] MEDS ORDERED: MAGN30S PO (09:50)
--- NOTE | 2017-05-30 09:52 | HHI.NSPN ---
History Chief Complaint: Incisional back pain. Interval History 05/28/17: Pt s/p L4/L5 TLIF with cage and pedicle screw fixation on 05/27/17. She is doing very well with pain control off the [employer]. No radiculopathy in LEs. She has not been oob yet, as brace is not yet available. Rose is out. 05/29/17: Pt awake and alert. She is more painful at incision today which isn' t unexpected. She denies any radiculopathy or paresthesias in LEs. She ambulates short distance and will benefit from rehab placement tomorrow. 05/30/17: Pt awake and alert. States back pain stable. No radiculopathy in LEs. No paresthesias in LEs. Pt states she feels weak in LEs generally. Review of Systems General: Negative for: fever, chills, insomnia Respiratory: Negative for: shortness of breath, cough, sputum Cardiovascular: Negative for: chest pain Gastrointestinal: Negative for: nausea, vomitting, diarrhea, constipation Exam Results Vital Signs Date Time Temp Pulse Resp B/P (MAP) Pulse Ox O2 Delivery O2 Flow Rate FiO2 05/30/17 08:00 97.1 68 17 135/63 (87) 94 05/29/17 20:55 21 05/27/17 17:45 Nasal Cannula 2 Intake and Output 05/30/17 05/30/17 05/31/17 08:00 16:00 00:00 Intake Total 480 ml Balance 480 ml Physical Examination General: Pt resting in bed in NAD. Resp: CTA bilaterally Heart: NSR no murmurs Abd: Soft positive bs Skin: No cyanosis or erythema. RN changed bandage this am. Muscle: Moves LEs with good strength. Neuro: Pt awake and alert. Follows commands well. Speech clear and appropriate. Lab, Micro, Other Results Last Impressions Lumbar Spine X-Ray 05/27/17 0000 Signed Impressions: Service Date/Time: Saturday, May 27, 2017 08:56 - CONCLUSION: Limited localization exam as described. Yoel Sharpe MD Laboratory Tests Test 05/30/17 04:15 White Blood Count 9.7 TH/MM3 Red Blood Count 4.00 MIL/MM3 Hemoglobin 11.8 GM/DL Hematocrit 34.8 % Mean Corpuscular Volume 86.9 FL Mean Corpuscular Hemoglobin 29.5 PG Mean Corpuscular Hemoglobin Concent 34.0 % Red Cell Distribution Width 13.5 % Platelet Count 230 TH/MM3 Mean Platelet Volume 8.1 FL Neutrophils (%) (Auto) 63.4 % Lymphocytes (%) (Auto) 24.6 % Monocytes (%) (Auto) 10.4 % Eosinophils (%) (Auto) 1.3 % Basophils (%) (Auto) 0.3 % Neutrophils # (Auto) 6.1 TH/MM3 Lymphocytes # (Auto) 2.4 TH/MM3 Monocytes # (Auto) 1.0 TH/MM3 Eosinophils # (Auto) 0.1 TH/MM3 Basophils # (Auto) 0.0 TH/MM3 CBC Comment DIFF FINAL Differential Comment Blood Urea Nitrogen 19 MG/DL Creatinine 0.82 MG/DL Random Glucose 95 MG/DL Total Protein 6.0 GM/DL Albumin 2.8 GM/DL Calcium Level 8.5 MG/DL Alkaline Phosphatase 66 U/L Aspartate Amino Transf (AST/SGOT) 56 U/L Alanine Aminotransferase (ALT/SGPT) 25 U/L Total Bilirubin 0.7 MG/DL Sodium Level 139 MEQ/L Potassium Level 4.5 MEQ/L Chloride Level 103 MEQ/L Carbon Dioxide Level 28.6 MEQ/L Anion Gap 7 MEQ/L Estimat Glomerular Filtration Rate 67 ML/MIN 05/30/17 05/30/17 05/31/17 15:00 23:00 07:00 Intake Total 480 ml Balance 480 ml Intake Oral 480 ml # Voids 2 # Bowel Movements 0 Medical Decision Making Impression and Plan A: 77 y/o FM s/p L4/L5 TLIF with cage and pedicle screw fixation P: Rehab placement today follow up with Dr. Valentine as directed. Erick Cruz May 30, 2017 9:52 am
[2017-05-30] MEDS: ENOXAPARIN SODIUM 40 MG/0.4 ML SYRINGE SQ SCH (12:27)
--- NOTE | 2017-05-30 13:39 | HHI.PR ---
Subjective Remarks Medically clear for discharge today. Stable for discharge to inpatient rehabilitation. Patient process of discharging when seen. Objective Vital Signs Date Time Temp Pulse Resp B/P (MAP) Pulse Ox O2 Delivery O2 Flow Rate FiO2 05/30/17 08:00 97.1 68 17 135/63 (87) 94 05/30/17 04:20 98.4 68 16 138/66 (90) 93 05/30/17 01:10 98.1 66 17 118/56 (76) 94 05/29/17 20:55 96 21 05/29/17 20:00 99.7 76 18 128/59 (82) 94 05/29/17 16:00 99.1 78 17 102/52 (69) 96 I/O 05/29/17 05/29/17 05/29/17 05/30/17 05/30/17 05/30/17 07:00 15:00 23:00 07:00 15:00 23:00 Intake Total 480 ml 600 ml 480 ml 480 ml Balance 480 ml 600 ml 480 ml 480 ml Intake Oral 480 ml 600 ml 480 ml 480 ml # Voids 1 2 2 2 # Bowel Movements 0 0 0 0 Result Diagram: 05/30/17 0415 05/30/17414 Objective Remarks GENERAL: NAD, A&Ox3 HEAD: Normocephalic. NECK: Supple, trachea midline. No lymphadenopathy. EYES: No scleral icterus. No injection or drainage. CARDIOVASCULAR: Regular rate and rhythm without murmurs, gallops, or rubs. RESPIRATORY: Breath sounds equal bilaterally. No accessory muscle use. GASTROINTESTINAL: Abdomen soft, non-tender, nondistended. MUSCULOSKELETAL: No cyanosis, or edema. Back braces on. SKIN: Warm and dry. NEURO: No focal neurological deficitis. A/P Problem List: (1) Lumbar stenosis ICD Code: M48.061 - Spinal stenosis, lumbar region without neurogenic claudication Assessment and Plan 77 year-old female with lower back disease admitted for and now status post L4/ L5 transforaminal interbody fixation. No further recurrence of fever. Medically stable for discharge today. Low back pain with bilateral sciatica Lumbar stenosis with neurogenic claudication Status post L4/L5 transforaminal interbody fixation Neurosurgery following Continue postop care Continue PT Thank for long term facility at discharge Atrial fibrillation continue with Tambocor 150mg BID, Continue beta ted and baby aspirin Hypertension Continue atenolol, Diovan Hypothyroidism Continue with home Synthroid dose DVT prophylaxis SCDs Discharge planning Discharge today. Santiago Bailey MD May 30, 2017 13:39
== END 2017-05-30 12:55 | DRG 460 ==
LOC: HSDI 05-27 05:53 → N06A 05-27 17:54
PROVIDERS: ADMIT Neurological Surgery; ATTEND Neurological Surgery
PROC: 0SB20ZZ Excision of Lumbar Vertebral Disc, Open Approach (ICD-10-PCS; 2017-05-27)
PROC: 01NB0ZZ Release Lumbar Nerve, Open Approach (ICD-10-PCS; 2017-05-27)
PROC: 0SG00AJ Fusion of Lumbar Vertebral Joint with Interbody Fusion Device, Posterior Approach, Anterior Column, Open Approach (ICD-10-PCS; principal; 2017-05-27 08:38)
DX: M48.062 Spinal stenosis, lumbar region with neurogenic claudication (principal); I48.91 Unspecified atrial fibrillation; R50.82 Postprocedural fever; I10 Essential (primary) hypertension; M51.36 Other intervertebral disc degeneration, lumbar region; M51.26 Other intervertebral disc displacement, lumbar region; G89.29 Other chronic pain; M43.16 Spondylolisthesis, lumbar region; M46.06 Spinal enthesopathy, lumbar region; K21.9 Gastro-esophageal reflux disease without esophagitis; E03.9 Hypothyroidism, unspecified; Z87.891 Personal history of nicotine dependence; Z88.2 Allergy status to sulfonamides; Z88.8 Allergy status to other drugs, medicaments and biological substances
CPT/HCPCS: 72020; 72100; 76000; 80048; 80053; 83735; 85007; 85025; 85027; 86850; 86900; 86901; 86920; 93005; 94150; C1713; J0131; J0690; J1100; J1650; J2370; J2405; J2710; J3010; J3370; J3480; J7050; J7120; L0627

== ENCOUNTER → 2017-05-20 | Outpatient (CLI) | payer MEDICARE ==
[2017-05-20 11:55] LABS: BACTERIA, URINE OCC /hpf; BILIRUBIN, URINE NEG (NEG); BLOOD, URINE NEG (NEG); GLUCOSE,URINE NEG (NEG); HYALINE CAST, URINE 1 /lpf (RARE); KETONE, URINE NEG (NEG); MUCUS URINE FEW /lpf (OCC); NITRITE,URINE NEG (NEG); SQUAMOUS EPITHELIAL CELL URINE <1 /hpf (0-5); URINE COLOR YELLOW (YELLW/STRAW); URINE LEUKOCYTE ESTERASE NEG (NEG)
[2017-05-20 11:59] LABS: BASOPHIL % 0.3 % (0.0-2.0); EOSINOPHIL # 0.1 TH/MM3 (0-0.4); EOSINOPHIL % 1.7 % (0.0-4.0); HEMATOCRIT 40.9 % (35.0-46.0); HEMOGLOBIN 14.1 GM/DL (11.6-15.3); LYMPH % 38.7 % (9.0-44.0); LYMPHOCYTE # 2.3 TH/MM3 (1.0-4.8); MEAN CELL VOLUME 85.5 FL (80.0-100.0); MEAN CORPUSCULAR HEMOGLOBIN 29.4 PG (27.0-34.0); MEAN CORPUSCULAR HGB CONC 34.4 % (32.0-36.0); MEAN PLATELET VOLUME 7.6 FL (7.0-11.0); MONOCYTE # 0.5 TH/MM3 (0-0.9); NEUT % 50.3 % (16.0-70.0); PLATELET COUNT 290 TH/MM3 (150-450); RED BLOOD COUNT 4.78 MIL/MM3 (4.00-5.30); RED CELL DISTRIBUTION WIDTH 13.8 % (11.6-17.2); WHITE BLOOD COUNT 5.9 TH/MM3 (4.0-11.0)
[2017-05-20 12:05] LABS: PROTHROMBIN TIME - PATIENT 10.3 SEC (9.8-11.6)
[2017-05-20 12:57] LABS: ALT (GPT) 25 U/L (10-53); BICARBONATE 28.5 MEQ/L (21.0-32.0); BLOOD UREA NITROGEN 13 MG/DL (7-18); CALCIUM 8.9 MG/DL (8.5-10.1); CHLORIDE 105 MEQ/L (98-107); CREATININE 0.91 MG/DL (0.50-1.00); GLOMERULAR FILTRATION RATE 60 ML/MIN (>89); GLUCOSE,FASTING 95 MG/DL (74-99); SODIUM (NA) 140 MEQ/L (136-145)
[2017-05-20 13:03] LABS: ALKALINE PHOSPHATASE 85 U/L (45-117); AST (GOT) 17 U/L (15-37); TOTAL BILIRUBIN ADULT 0.7 MG/DL (0.2-1.0); TOTAL PROTEIN 7.1 GM/DL (6.4-8.2)
== END ==
LOC: CLAB 11:23
PROVIDERS: ATTEND Physician Assistant Medical
DX: Z79.1 Long term (current) use of non-steroidal anti-inflammatories (NSAID) (principal); N39.0 Urinary tract infection, site not specified
CPT/HCPCS: 36415; 80053; 81001; 85025; 85610; 85730